=== PATIENT | male | born 1975 | race Native Hawaiian/Other Pacific Islander ===

== ENCOUNTER 2020-02-09 10:19 | Outpatient (CLI) | payer BC | END 2020-02-09 22:31 | disposition home or self-care (01) | LOC: RESP 10:19 | DX: R06.09 Other forms of dyspnea (principal) ==

== ENCOUNTER 2021-01-04 08:27 | Emergency (ER) | payer OTHER, BC ==
[~2021-01-04] VITALS: Ht 182.9 cm; Wt 167.8 kg
[2021-01-04 08:33] VITALS: BP 154/82; TEMP 98.9
== END 2021-01-04 10:00 | disposition home or self-care (01) ==
LOC: ED 08:27
DX: M25.512 Pain in left shoulder (principal); M25.522 Pain in left elbow; V49.40XA Driver injured in collision with unspecified motor vehicles in traffic accident, initial encounter; Y92.89 Other specified places as the place of occurrence of the external cause
CPT/HCPCS: 96372; 99283; J1885; J2270; J2405

== ENCOUNTER 2021-01-30 07:59 | Outpatient (CLI) | payer BC ==
[~2021-01-30] VITALS: Ht 182.9 cm; Wt 172.4 kg
== END 2021-01-30 19:34 | disposition home or self-care (01) ==
LOC: DIABINF 07:59
PROVIDERS: ATTEND Internal Medicine Endocrinology, Diabetes & Metabolism
DX: E11.40 Type 2 diabetes mellitus with diabetic neuropathy, unspecified (principal); Z79.4 Long term (current) use of insulin; Z68.43 Body mass index [BMI] 50.0-59.9, adult; N52.8 Other male erectile dysfunction; I10 Essential (primary) hypertension; I48.0 Paroxysmal atrial fibrillation; F33.8 Other recurrent depressive disorders; F41.1 Generalized anxiety disorder; G47.33 Obstructive sleep apnea (adult) (pediatric); M19.09 Primary osteoarthritis, other specified site
CPT/HCPCS: 82948; 96365; 96366; 96521; 99204; J1718; J1815

== ENCOUNTER 2021-01-31 07:39 | Outpatient (CLI) | payer BC ==
[~2021-01-31] VITALS: Ht 182.9 cm; Wt 127.0 kg
== END 2021-01-31 21:03 | disposition home or self-care (01) ==
LOC: DIABINF 07:39
PROVIDERS: ATTEND Internal Medicine Endocrinology, Diabetes & Metabolism
DX: E11.42 Type 2 diabetes mellitus with diabetic polyneuropathy (principal); Z79.4 Long term (current) use of insulin; Z68.43 Body mass index [BMI] 50.0-59.9, adult; N52.8 Other male erectile dysfunction; I10 Essential (primary) hypertension; I48.0 Paroxysmal atrial fibrillation; F33.8 Other recurrent depressive disorders; M19.09 Primary osteoarthritis, other specified site
CPT/HCPCS: 82948; 96365; 96366; 96521; 99214; J1718; J1815

== ENCOUNTER 2021-02-06 07:54 | Outpatient (CLI) | payer BC ==
[~2021-02-06] VITALS: Ht 182.9 cm; Wt 172.4 kg
== END 2021-02-06 19:11 | disposition home or self-care (01) ==
LOC: DIABINF 07:54
PROVIDERS: ATTEND Internal Medicine Endocrinology, Diabetes & Metabolism
DX: E11.42 Type 2 diabetes mellitus with diabetic polyneuropathy (principal); Z79.4 Long term (current) use of insulin; Z68.43 Body mass index [BMI] 50.0-59.9, adult; N52.8 Other male erectile dysfunction; I10 Essential (primary) hypertension; I48.0 Paroxysmal atrial fibrillation; F33.8 Other recurrent depressive disorders; M19.09 Primary osteoarthritis, other specified site; G47.39 Other sleep apnea
CPT/HCPCS: 82948; 96365; 96366; 96521; 99214; J1718; J1815

== ENCOUNTER 2021-02-07 07:50 | Outpatient (CLI) | payer BC ==
[~2021-02-07] VITALS: Ht 182.9 cm; Wt 172.4 kg
== END 2021-02-07 19:28 | disposition home or self-care (01) ==
LOC: DIABINF 07:50
PROVIDERS: ATTEND Internal Medicine Endocrinology, Diabetes & Metabolism
DX: E11.42 Type 2 diabetes mellitus with diabetic polyneuropathy (principal); Z79.4 Long term (current) use of insulin; Z68.43 Body mass index [BMI] 50.0-59.9, adult; N52.8 Other male erectile dysfunction; I10 Essential (primary) hypertension; I48.0 Paroxysmal atrial fibrillation; F33.8 Other recurrent depressive disorders; M19.09 Primary osteoarthritis, other specified site; G47.39 Other sleep apnea; F41.1 Generalized anxiety disorder
CPT/HCPCS: 82948; 96365; 96366; 96521; 99214; J1718; J1815

== ENCOUNTER 2021-02-13 07:50 | Outpatient (CLI) | payer BC ==
[~2021-02-13] VITALS: Ht 182.9 cm; Wt 172.4 kg
== END 2021-02-13 20:40 | disposition home or self-care (01) ==
LOC: DIABINF 07:50
PROVIDERS: ATTEND Internal Medicine Endocrinology, Diabetes & Metabolism
DX: E11.42 Type 2 diabetes mellitus with diabetic polyneuropathy (principal); E11.65 Type 2 diabetes mellitus with hyperglycemia; Z79.4 Long term (current) use of insulin; Z68.43 Body mass index [BMI] 50.0-59.9, adult; N52.8 Other male erectile dysfunction; I10 Essential (primary) hypertension; I48.0 Paroxysmal atrial fibrillation; F33.8 Other recurrent depressive disorders; M19.09 Primary osteoarthritis, other specified site; G47.39 Other sleep apnea; F41.1 Generalized anxiety disorder
CPT/HCPCS: 82948; 96365; 96366; 96521; 99214; J1718; J1815

== ENCOUNTER 2021-02-14 07:44 | Outpatient (CLI) | payer BC ==
[~2021-02-14] VITALS: Ht 182.9 cm; Wt 172.4 kg
== END 2021-02-14 22:02 | disposition home or self-care (01) ==
LOC: DIABINF 07:44
PROVIDERS: ATTEND Internal Medicine Endocrinology, Diabetes & Metabolism
DX: E11.42 Type 2 diabetes mellitus with diabetic polyneuropathy (principal); E11.65 Type 2 diabetes mellitus with hyperglycemia; Z79.4 Long term (current) use of insulin; N52.8 Other male erectile dysfunction; Z68.43 Body mass index [BMI] 50.0-59.9, adult; I10 Essential (primary) hypertension; I48.0 Paroxysmal atrial fibrillation; F33.8 Other recurrent depressive disorders; M19.09 Primary osteoarthritis, other specified site; G47.39 Other sleep apnea; F41.1 Generalized anxiety disorder
CPT/HCPCS: 82948; 96365; 96366; 96521; 99214; J1718; J1815

== ENCOUNTER 2021-02-21 07:51 | Outpatient (CLI) | payer BC ==
[~2021-02-21] VITALS: Ht 182.9 cm; Wt 172.4 kg
== END 2021-02-21 21:53 | disposition home or self-care (01) ==
LOC: DIABINF 07:51
PROVIDERS: ATTEND Internal Medicine Endocrinology, Diabetes & Metabolism
DX: E11.65 Type 2 diabetes mellitus with hyperglycemia (principal); E11.40 Type 2 diabetes mellitus with diabetic neuropathy, unspecified; Z79.4 Long term (current) use of insulin; Z68.43 Body mass index [BMI] 50.0-59.9, adult; N52.8 Other male erectile dysfunction; I10 Essential (primary) hypertension; F33.9 Major depressive disorder, recurrent, unspecified; I48.0 Paroxysmal atrial fibrillation; F41.1 Generalized anxiety disorder; G47.39 Other sleep apnea; M19.09 Primary osteoarthritis, other specified site
CPT/HCPCS: 82948; 96365; 96366; 96521; 99214; J1718; J1815

== ENCOUNTER 2021-02-28 07:52 | Outpatient (CLI) | payer BC ==
[~2021-02-28] VITALS: Ht 182.9 cm; Wt 172.4 kg
== END 2021-02-28 22:35 | disposition home or self-care (01) ==
LOC: DIABINF 07:52
PROVIDERS: ATTEND Internal Medicine Endocrinology, Diabetes & Metabolism
DX: E11.40 Type 2 diabetes mellitus with diabetic neuropathy, unspecified (principal); E11.65 Type 2 diabetes mellitus with hyperglycemia; Z79.4 Long term (current) use of insulin; Z68.43 Body mass index [BMI] 50.0-59.9, adult; N52.8 Other male erectile dysfunction; I10 Essential (primary) hypertension; I48.0 Paroxysmal atrial fibrillation; F33.9 Major depressive disorder, recurrent, unspecified; F41.1 Generalized anxiety disorder; G47.33 Obstructive sleep apnea (adult) (pediatric); M19.09 Primary osteoarthritis, other specified site
CPT/HCPCS: 82948; 96365; 96366; 96521; 99214; J1718; J1815

== ENCOUNTER 2021-03-07 07:48 | Outpatient (CLI) | payer BC ==
[~2021-03-07] VITALS: Ht 182.9 cm; Wt 172.4 kg
== END 2021-03-07 19:58 | disposition home or self-care (01) ==
LOC: DIABINF 07:48
PROVIDERS: ATTEND Internal Medicine Endocrinology, Diabetes & Metabolism
DX: E11.40 Type 2 diabetes mellitus with diabetic neuropathy, unspecified (principal); E11.65 Type 2 diabetes mellitus with hyperglycemia; Z79.4 Long term (current) use of insulin; Z68.43 Body mass index [BMI] 50.0-59.9, adult; N52.8 Other male erectile dysfunction; I10 Essential (primary) hypertension; I48.0 Paroxysmal atrial fibrillation; F33.9 Major depressive disorder, recurrent, unspecified; F41.1 Generalized anxiety disorder; G47.33 Obstructive sleep apnea (adult) (pediatric); M15.0 Primary generalized (osteo)arthritis; S81.832A Puncture wound without foreign body, left lower leg, initial encounter
CPT/HCPCS: 82948; 96365; 96366; 96521; 99214; J1718; J1815

== ENCOUNTER 2021-03-14 07:45 | Outpatient (CLI) | payer BC ==
[~2021-03-14] VITALS: Ht 182.9 cm; Wt 172.4 kg
== END 2021-03-14 21:28 | disposition home or self-care (01) ==
LOC: DIABINF 07:45
PROVIDERS: ATTEND Internal Medicine Endocrinology, Diabetes & Metabolism
DX: E11.40 Type 2 diabetes mellitus with diabetic neuropathy, unspecified (principal); E11.65 Type 2 diabetes mellitus with hyperglycemia; Z79.4 Long term (current) use of insulin; Z68.43 Body mass index [BMI] 50.0-59.9, adult; N52.8 Other male erectile dysfunction; I10 Essential (primary) hypertension; I48.0 Paroxysmal atrial fibrillation; F33.9 Major depressive disorder, recurrent, unspecified; F41.1 Generalized anxiety disorder; G47.33 Obstructive sleep apnea (adult) (pediatric); M15.0 Primary generalized (osteo)arthritis; S81.832A Puncture wound without foreign body, left lower leg, initial encounter
CPT/HCPCS: 82948; 96365; 96366; 96521; 99214; J1718; J1815

== ENCOUNTER 2021-03-21 07:38 | Outpatient (CLI) | payer BC ==
[~2021-03-21] VITALS: Ht 182.9 cm; Wt 172.4 kg
== END 2021-03-21 21:13 | disposition home or self-care (01) ==
LOC: DIABINF 07:38
PROVIDERS: ATTEND Internal Medicine Endocrinology, Diabetes & Metabolism
DX: E11.21 Type 2 diabetes mellitus with diabetic nephropathy (principal); E11.65 Type 2 diabetes mellitus with hyperglycemia; Z79.4 Long term (current) use of insulin; Z68.43 Body mass index [BMI] 50.0-59.9, adult; N52.8 Other male erectile dysfunction; I10 Essential (primary) hypertension; I48.0 Paroxysmal atrial fibrillation; F33.9 Major depressive disorder, recurrent, unspecified; F41.1 Generalized anxiety disorder; G47.33 Obstructive sleep apnea (adult) (pediatric); M15.0 Primary generalized (osteo)arthritis; S81.832A Puncture wound without foreign body, left lower leg, initial encounter
CPT/HCPCS: 82948; 96365; 96366; 96521; 99214; J1718; J1815

== ENCOUNTER 2021-04-04 07:44 | Outpatient (CLI) | payer BC ==
[~2021-04-04] VITALS: Ht 182.9 cm; Wt 172.4 kg
== END 2021-04-04 19:15 | disposition home or self-care (01) ==
LOC: DIABINF 07:44
PROVIDERS: ATTEND Nurse Practitioner
DX: E11.21 Type 2 diabetes mellitus with diabetic nephropathy (principal); E11.65 Type 2 diabetes mellitus with hyperglycemia; Z79.4 Long term (current) use of insulin; Z68.43 Body mass index [BMI] 50.0-59.9, adult; N52.9 Male erectile dysfunction, unspecified; I10 Essential (primary) hypertension; I48.0 Paroxysmal atrial fibrillation; F32.89 Other specified depressive episodes; F41.1 Generalized anxiety disorder; G47.33 Obstructive sleep apnea (adult) (pediatric); M15.8 Other polyosteoarthritis
CPT/HCPCS: 82948; 96365; 96366; 96521; 99214; J1815; J1817

== ENCOUNTER 2021-04-11 07:28 | Outpatient (CLI) | payer BC ==
[~2021-04-11] VITALS: Ht 182.9 cm; Wt 172.4 kg
== END 2021-04-11 20:36 | disposition home or self-care (01) ==
LOC: DIABINF 07:28
PROVIDERS: ATTEND Nurse Practitioner
DX: E11.21 Type 2 diabetes mellitus with diabetic nephropathy (principal); E11.65 Type 2 diabetes mellitus with hyperglycemia; Z79.4 Long term (current) use of insulin; Z68.43 Body mass index [BMI] 50.0-59.9, adult; N52.8 Other male erectile dysfunction; I10 Essential (primary) hypertension; I48.0 Paroxysmal atrial fibrillation; F33.9 Major depressive disorder, recurrent, unspecified; F41.1 Generalized anxiety disorder; G47.33 Obstructive sleep apnea (adult) (pediatric); M15.0 Primary generalized (osteo)arthritis; S81.832D Puncture wound without foreign body, left lower leg, subsequent encounter
CPT/HCPCS: 82948; 96365; 96366; 96521; J1815; J1817

== ENCOUNTER 2021-04-13 11:48 | Outpatient (CLI) | payer BC ==
[2021-04-13 11:54] LABS: PLATELET COUNT 211 K/uL (142-355)
[2021-04-13 12:13] LABS: POTASSIUM 4.3 mmol/L (3.6-5.2)
== END 2021-04-13 22:41 | disposition home or self-care (01) ==
LOC: LAB 11:48
PROVIDERS: ATTEND Nurse Practitioner
DX: E11.65 Type 2 diabetes mellitus with hyperglycemia (principal); I10 Essential (primary) hypertension; I48.0 Paroxysmal atrial fibrillation; E66.9 Obesity, unspecified
CPT/HCPCS: 80053; 80061; 83036; 85027

== ENCOUNTER 2021-04-18 08:10 | Outpatient (CLI) | payer BC ==
[~2021-04-18] VITALS: Ht 182.9 cm; Wt 172.4 kg
== END 2021-04-18 21:26 | disposition home or self-care (01) ==
LOC: DIABINF 08:10
PROVIDERS: ATTEND Internal Medicine Endocrinology, Diabetes & Metabolism
DX: E11.40 Type 2 diabetes mellitus with diabetic neuropathy, unspecified (principal); E11.65 Type 2 diabetes mellitus with hyperglycemia; Z79.4 Long term (current) use of insulin; Z68.43 Body mass index [BMI] 50.0-59.9, adult; N52.8 Other male erectile dysfunction; I10 Essential (primary) hypertension; I48.0 Paroxysmal atrial fibrillation; F33.0 Major depressive disorder, recurrent, mild; F41.1 Generalized anxiety disorder; G47.33 Obstructive sleep apnea (adult) (pediatric); M15.0 Primary generalized (osteo)arthritis; S81.832D Puncture wound without foreign body, left lower leg, subsequent encounter
CPT/HCPCS: 82948; 96365; 96366; 96521; J1815; J1817

== ENCOUNTER 2021-04-25 07:28 | Outpatient (CLI) | payer BC ==
[~2021-04-25] VITALS: Ht 182.9 cm; Wt 172.4 kg
== END 2021-04-25 20:12 | disposition home or self-care (01) ==
LOC: DIABINF 07:28
PROVIDERS: ATTEND Internal Medicine Endocrinology, Diabetes & Metabolism
DX: E11.40 Type 2 diabetes mellitus with diabetic neuropathy, unspecified (principal); E11.65 Type 2 diabetes mellitus with hyperglycemia; Z79.4 Long term (current) use of insulin; Z68.43 Body mass index [BMI] 50.0-59.9, adult; N52.8 Other male erectile dysfunction; I10 Essential (primary) hypertension; I48.0 Paroxysmal atrial fibrillation; F33.0 Major depressive disorder, recurrent, mild; F41.1 Generalized anxiety disorder; G47.33 Obstructive sleep apnea (adult) (pediatric); M15.0 Primary generalized (osteo)arthritis; S81.832D Puncture wound without foreign body, left lower leg, subsequent encounter
CPT/HCPCS: 82948; 96365; 96366; 96521; J1815; J1817

== ENCOUNTER 2021-05-02 08:10 | Outpatient (CLI) | payer BC ==
[~2021-05-02] VITALS: Ht 182.9 cm; Wt 172.4 kg
== END 2021-05-02 19:41 | disposition home or self-care (01) ==
LOC: DIABINF 08:10
PROVIDERS: ATTEND Internal Medicine Endocrinology, Diabetes & Metabolism
DX: E11.40 Type 2 diabetes mellitus with diabetic neuropathy, unspecified (principal); E11.65 Type 2 diabetes mellitus with hyperglycemia; Z79.4 Long term (current) use of insulin; Z68.43 Body mass index [BMI] 50.0-59.9, adult; N52.8 Other male erectile dysfunction; I10 Essential (primary) hypertension; I48.0 Paroxysmal atrial fibrillation; F33.0 Major depressive disorder, recurrent, mild; F41.1 Generalized anxiety disorder; G47.33 Obstructive sleep apnea (adult) (pediatric); M15.0 Primary generalized (osteo)arthritis
CPT/HCPCS: 82948; 96365; 96366; 96521; J1815; J1817

== ENCOUNTER 2021-05-09 07:51 | Outpatient (CLI) | payer BC ==
[~2021-05-09] VITALS: Ht 182.9 cm; Wt 172.4 kg
== END 2021-05-09 22:59 | disposition home or self-care (01) ==
LOC: DIABINF 07:51
PROVIDERS: ATTEND Internal Medicine Endocrinology, Diabetes & Metabolism
DX: E11.40 Type 2 diabetes mellitus with diabetic neuropathy, unspecified (principal); E11.65 Type 2 diabetes mellitus with hyperglycemia; Z79.4 Long term (current) use of insulin; Z68.43 Body mass index [BMI] 50.0-59.9, adult; N52.8 Other male erectile dysfunction; I10 Essential (primary) hypertension; I48.0 Paroxysmal atrial fibrillation; F33.0 Major depressive disorder, recurrent, mild; F41.1 Generalized anxiety disorder; G47.33 Obstructive sleep apnea (adult) (pediatric); M15.0 Primary generalized (osteo)arthritis; M54.31 Sciatica, right side
CPT/HCPCS: 82948; 96365; 96366; 96521; J1815; J1817

== ENCOUNTER 2021-05-16 07:52 | Outpatient (CLI) | payer BC ==
[~2021-05-16] VITALS: Ht 182.9 cm; Wt 172.4 kg
== END 2021-05-16 22:17 | disposition home or self-care (01) ==
LOC: DIABINF 07:52
PROVIDERS: ATTEND Internal Medicine Endocrinology, Diabetes & Metabolism
DX: E11.65 Type 2 diabetes mellitus with hyperglycemia (principal); E11.40 Type 2 diabetes mellitus with diabetic neuropathy, unspecified; Z79.4 Long term (current) use of insulin; I10 Essential (primary) hypertension; N52.8 Other male erectile dysfunction; I48.0 Paroxysmal atrial fibrillation; E66.01 Morbid (severe) obesity due to excess calories; Z68.43 Body mass index [BMI] 50.0-59.9, adult; F41.1 Generalized anxiety disorder; G47.33 Obstructive sleep apnea (adult) (pediatric); M89.49 Other hypertrophic osteoarthropathy, multiple sites
CPT/HCPCS: 82948; 96365; 96366; 96521; J1815; J1817

== ENCOUNTER 2021-05-23 07:54 | Outpatient (CLI) | payer BC ==
[~2021-05-23] VITALS: Ht 182.9 cm; Wt 148.3 kg
== END 2021-05-23 11:30 | disposition home or self-care (01) ==
LOC: DIABINF 07:54
PROVIDERS: ATTEND Internal Medicine Endocrinology, Diabetes & Metabolism
DX: E11.65 Type 2 diabetes mellitus with hyperglycemia (principal); E11.40 Type 2 diabetes mellitus with diabetic neuropathy, unspecified; Z79.4 Long term (current) use of insulin; N52.9 Male erectile dysfunction, unspecified; I48.0 Paroxysmal atrial fibrillation; E66.01 Morbid (severe) obesity due to excess calories; Z68.43 Body mass index [BMI] 50.0-59.9, adult; E78.2 Mixed hyperlipidemia; F41.1 Generalized anxiety disorder; G47.39 Other sleep apnea; M15.8 Other polyosteoarthritis
CPT/HCPCS: 82948; 96365; 96366; 96521; J1815; J1817

== ENCOUNTER 2021-05-30 07:56 | Outpatient (CLI) | payer BC ==
[~2021-05-30] VITALS: Ht 182.9 cm; Wt 148.3 kg
== END 2021-05-30 11:30 | disposition home or self-care (01) ==
LOC: DIABINF 07:56
PROVIDERS: ATTEND Nurse Practitioner
DX: E11.65 Type 2 diabetes mellitus with hyperglycemia (principal); E11.40 Type 2 diabetes mellitus with diabetic neuropathy, unspecified; Z79.4 Long term (current) use of insulin; I10 Essential (primary) hypertension; N52.8 Other male erectile dysfunction; I48.0 Paroxysmal atrial fibrillation; E66.01 Morbid (severe) obesity due to excess calories; Z68.43 Body mass index [BMI] 50.0-59.9, adult; F41.1 Generalized anxiety disorder; G47.33 Obstructive sleep apnea (adult) (pediatric); M89.49 Other hypertrophic osteoarthropathy, multiple sites
CPT/HCPCS: 82948; 96365; 96366; 96521; 99214; J1815; J1817

== ENCOUNTER 2021-06-06 07:41 | Outpatient (CLI) | payer BC ==
[~2021-06-06] VITALS: Ht 182.9 cm; Wt 148.3 kg
== END 2021-06-06 22:07 | disposition home or self-care (01) ==
LOC: DIABINF 07:41
PROVIDERS: ATTEND Nurse Practitioner
DX: E11.65 Type 2 diabetes mellitus with hyperglycemia (principal); E11.40 Type 2 diabetes mellitus with diabetic neuropathy, unspecified; Z79.4 Long term (current) use of insulin; I10 Essential (primary) hypertension; N52.8 Other male erectile dysfunction; I48.0 Paroxysmal atrial fibrillation; E66.01 Morbid (severe) obesity due to excess calories; Z68.43 Body mass index [BMI] 50.0-59.9, adult; F41.1 Generalized anxiety disorder; G47.33 Obstructive sleep apnea (adult) (pediatric); M89.49 Other hypertrophic osteoarthropathy, multiple sites
CPT/HCPCS: 82948; 96365; 96366; 96521; J1815; J1817